=== PATIENT | female | born 1965 | race Caucasian/White ===

== ENCOUNTER 2019-06-19 10:00 | Day surgery (SDC) | payer BC ==
[~2019-06-19] VITALS: Ht 165.1 cm; Wt 76.9 kg
--- NOTE | 2019-06-19 12:11 | NUR ---
06/19/19 1211 Tosin Allen PT UPDATED OF DELAY IN ROOM. FRIEND BROUGT BACK TO BE WITH HER. WARM BLANKET AND MAGAZINES PROVIDED. CALL LIGHT IN REACH.
--- NOTE | 2019-06-19 14:36 | NUR ---
06/19/19 1436 Simone Palma LATE ENTRY-1404 PATIENT VERY SLEEPY AND WOULD NOT OPEN EYES. PATIENT STATES SHE IS TIRED. DENIES PAIN, N/V AT THIS TIME. VSS MOVED PATIENT TO DIFFERENT ROOM IN SDU TO WAKE UP. PATIENT GIVEN WARM BLANKETS AND JUICE TO DRINK. 1415-PATIENT STATES SHE CAN GET DRESSED NOW AND GO HOME.
== END 2019-06-19 14:20 | disposition home or self-care (01) ==
LOC: ORSCSDS 10:00
PROVIDERS: Student in an Organized Health Care Education/Training Program
PROC: 0DBH8ZX Excision of Cecum, Via Natural or Artificial Opening Endoscopic, Diagnostic (ICD-10-PCS; principal; 2019-06-19 11:15)
PROC: 0DBL8ZX Excision of Transverse Colon, Via Natural or Artificial Opening Endoscopic, Diagnostic (ICD-10-PCS; principal; 2019-06-19 11:15)
DX: Z12.11 Encounter for screening for malignant neoplasm of colon (principal); K63.5 Polyp of colon; K57.30 Diverticulosis of large intestine without perforation or abscess without bleeding
CPT/HCPCS: 88305; J2704; J7120